=== PATIENT | female | born 1985 | race Caucasian/White ===

== ENCOUNTER 2017-08-13 20:01 | Emergency (ER) | payer BC, OTHER ==
[~2017-08-13] VITALS: Ht 160 cm; Wt 105.3 kg
[2017-08-13 20:21] VITALS: Ht 160 cm; Wt 105.3 kg
--- NOTE | 2017-08-13 22:31 | ERD ---
ER Documentation Chief Complaint Chief Complaint Pt was sitting when CP started, dizziness with head movement x 2months HPI 32-year-old female presents here in emergency department for complaints of mid chest pain that started this morning, it radiates from the chest to the neck area and to the head was upon movement, patient has been having these headaches on and off for the last 2 months. Patient's currently going to school and taking care of her child. Patient is complaining of chest pain, sharp pain, 6/ 10 scale, intermittent pain, not better or worse with anything. Patient did not take any medications to help with symptoms ROS All systems reviewed and are negative except as per history of present illness. Medications Home Meds Reported Medications [none] Unknown Strength No Conflict Check 08/13/17 Allergies Allergies: Coded Allergies: No Known Allergy (Unverified , 11/17/14) PMhx/Soc Medical and Surgical Hx: pt denies Medical Hx, pt denies Surgical Hx Hx Alcohol Use: No Hx Substance Use: No Hx Tobacco Use: No FmHx Family History: No coronary disease, No diabetes, No other Physical Exam Vitals Vital Signs Date Time Temp Pulse Resp B/P Pulse Ox O2 Delivery O2 Flow Rate FiO2 08/13/17 20:21 98.6 90 119 71/99 100 Physical Exam GENERAL: The patient is well developed and appropriate for usual state of health, in no apparent distress. CHEST: Clear to auscultation bilaterally. There are no rales, wheezes or rhonchi. HEART: Regular rate and rhythm. No murmurs, clicks, rubs or gallops. No S3 or S4. ABDOMEN: Soft, nontender and nondistended. Good bowel sounds. No rebound or guarding. No gross peritonitis. No gross organomegaly or masses. No Nugent sign or McBurney point tenderness. BACK: No midline or flank tenderness. EXTREMITIES: Tenderness on palpation of the right fifth toe. No deformity. No swelling. Equal pulses bilaterally. Full range of motion of other joints of the body. Grossly neurovascularly intact. NEURO: Alert and oriented. Cranial nerves 2-12 intact. Motor strength in all 4 extremities with 5/5 strength. Sensation grossly intact. Normal speech and gait. SKIN: There is no apparent rash or petechia. The skin is warm and dry. HEMATOLOGIC AND LYMPHATIC: There is no evidence of excessive bruising or lymphedema. No gross cervical, axillary, or inguinal lymphadenopathy. Result Diagram: 08/13/175 08/13/172224 Results 24 hrs Laboratory Tests Test 08/13/17 22:25 White Blood Count 9.910^3/ul Red Blood Count 4.4910^6/ul Hemoglobin 12.8g/dl Hematocrit 40.2% Mean Corpuscular Volume 89.5fl Mean Corpuscular Hemoglobin 28.5pg Mean Corpuscular Hemoglobin Concent 31.8g/dl Red Cell Distribution Width 13.2% Platelet Count 35203^3/UL Mean Platelet Volume 11.8fl Neutrophils % 70.5% Lymphocytes % 19.1% Monocytes % 7.3% Eosinophils % 2.8% Basophils % 0.2% Nucleated Red Blood Cells % 0.0/100WBC Neutrophils # 7.010^3/ul Lymphocytes # 1.910^3/ul Monocytes # 0.710^3/ul Eosinophils # 0.310^3/ul Basophils # 0.010^3/ul Nucleated Red Blood Cells # 0.010^3/ul Sodium Level 142mmol/L Potassium Level 4.0mmol/L Chloride Level 108mmol/L Carbon Dioxide Level 25mmol/L Anion Gap 13 Blood Urea Nitrogen 13mg/dl Creatinine 0.62mg/dl Glucose Level 99mg/dl Calcium Level 8.8mg/dl Total Bilirubin 0.4mg/dl Direct Bilirubin 0.00mg/dl Indirect Bilirubin 0.4mg/dl Aspartate Amino Transf (AST/SGOT) 17IU/L Alanine Aminotransferase (ALT/SGPT) 32IU/L Alkaline Phosphatase 65IU/L Troponin I < 0.012ng/ml Total Protein 7.4g/dl Albumin 4.3g/dl Globulin 3.10g/dl Albumin/Globulin Ratio 1.38 EKG was done, read by me and is normal sinus rhythm at a rate of 87, normal axis , there is no ST changes or changes in the EKG that indicates any cardiac emergencies at this time. Patient's EKG was also reviewed by . Impression: no acute findings on EKG PROCEDURE: XR Chest. CLINICAL INDICATION: Cough. Chest pain.. TECHNIQUE: Single frontal chest x-ray. COMPARISON: None. FINDINGS: The cardiomediastinal silhouette is unremarkable. There is hypoventilation with bibasilar atelectasis.. There is no definite focal lobar infiltrate.. There is no pleural effusion. There is no pneumothorax. The osseous structures are unremarkable. IMPRESSION: Hypoventilation with bibasilar atelectasis, less likely infiltrates. RPTAT: HMVK .Ernie Peralta MD, MD Date Time Electronically viewed and signed by .Ernie Peralta MD, MD on 08/13/2017 23:25 .K/ CC: KIAN HU TOY STUFFER PROCEDURE: XR right toes. CLINICAL INDICATION: Status post fall. Pain. TECHNIQUE: Three views of the right fifth toe are available for review COMPARISON: No prior studies are available for comparison. FINDINGS: There is normal mineralization and alignment. No fracture or osseous lesion is identified. The joints are normal. The soft tissues are unremarkable. IMPRESSION: 1. Unremarkable right fifth toe x-ray series. RPTAT: HMVK .Ernie Peralta MD, MD Date Time Electronically viewed and signed by .Ernie Peralta MD, MD on 08/14/2017 00:00 .K/ CC: KIAN HU TOY STUFFER Procedures/[facility] Heart score: 0 - low risk Medical Decision Making: Patient symptoms of chest pain nonspecific at this time , possible anxiety related, stress related, can be musculoskeletal pain. Low suspicion for neurologic emergencies. There is low suspicion for cardiopulmonary emergencies at this time. Patient has low risk factors. EKG is normal, there is no changes in the EKG that indicates cardiac emergencies. Chest X-ray does not show cardiopulmonary emergencies at this time. There is low suspicion for aortic aneurysm, myocardial infarction, pneumothorax, pleural effusion, pulmonary embolism, or any other cardiopulmonary emergencies at this time. Cardiac markers are normal. She also has a foot contusion, no fractures noted, no symptoms of any septic arthritis or osteomyelitis Patient was given for ibuprofen, tramadol, is advised to follow-up with primary care doctor in 2-3 days for reevaluation of symptoms. Patient was advised to return to emergency department for any worsening symptoms. Dispostion: Home. Stable Disclaimer: Inadvertent spelling and grammatical errors are likely due to EHR/ dictation software use and do not reflect on the overall quality of patient care. Also, please note that the electronic time recorded on this note does not necessarily reflect the actual time of the patient encounter. Departure Diagnosis: Primary Impression: Atypical chest pain Additional Impression: Foot contusion Encounter type: initial encounter Laterality: right Qualified Code: S90.31XA - Contusion of right foot, initial encounter Condition: Stable Patient Instructions: Chest Pain, Uncertain Cause, Contusion, Foot KIAN HU NP Aug 13, 2017 22:31
[2017-08-13 22:33] LABS: BASOPHILS % 0.2 % (0.0-2.0); EOSINOPHILS # 0.3 10^3/ul (0.0-0.5); EOSINOPHILS % 2.8 % (0.0-7.0); HEMATOCRIT 40.2 % (37.0-47.0); HEMOGLOBIN 12.8 g/dl (12.0-16.0); LYMPHOCYTES # 1.9 10^3/ul (0.8-2.9); LYMPHOCYTES % 19.1 % (15.0-51.0); MEAN CORPUSCULAR HEMOGLOBIN 28.5 pg (29.0-33.0); MEAN CORPUSCULAR HGB CONC 31.8 g/dl (32.0-37.0); MEAN CORPUSCULAR VOLUME 89.5 fl (82.0-101.0); MEAN PLATELET VOLUME 11.8 fl (7.4-10.4); MONOCYTE # 0.7 10^3/ul (0.3-0.9); MONOCYTES % 7.3 % (0.0-11.0); NEUTROPHILS % 70.5 % (39.0-77.0); PLATELET COUNT 151 10^3/UL (140-415); RED BLOOD COUNT 4.49 10^6/ul (4.20-5.40); RED CELL DISTRIBUTION WIDTH 13.2 % (11.5-14.5); WHITE BLOOD COUNT 9.9 10^3/ul (4.8-10.8)
[2017-08-13 22:54] LABS: ALANINE AMINOTRANSFERASE 32 IU/L (13-69); ALBUMIN 4.3 g/dl (3.3-4.9); ALBUMIN/GLOBULIN RATIO 1.38; ALKALINE PHOSPHATASE 65 IU/L (42-121); ANION GAP 13 (8-16); ASPARTATE AMINO TRANSFERASE 17 IU/L (15-46); BILIRUBIN,INDIRECT 0.4 mg/dl (0-1.1); BILIRUBIN,TOTAL 0.4 mg/dl (0.2-1.3); BLOOD UREA NITROGEN 13 mg/dl (7-20); CALCIUM 8.8 mg/dl (8.4-10.2); CARBON DIOXIDE 25 mmol/L (21-31); CHLORIDE 108 mmol/L (97-110); CREATININE 0.62 mg/dl (0.44-1.00); GLUCOSE 99 mg/dl (70-220); SODIUM 142 mmol/L (135-144); TOTAL PROTEIN 7.4 g/dl (6.1-8.1)
[2017-08-13 23:13] LABS: TROPONIN-I < 0.012 ng/ml (0.00-0.12)
--- NOTE | 2017-08-13 23:26 | RADRPT ---
PROCEDURE: XR Chest. CLINICAL INDICATION: Cough. Chest pain.. TECHNIQUE: Single frontal chest x-ray. COMPARISON: None. FINDINGS: The cardiomediastinal silhouette is unremarkable. There is hypoventilation with bibasilar atelectas is.. There is no definite focal lobar infiltrate.. There is no pleural effusion. There is no pneum othorax. The osseous structures are unremarkable. IMPRESSION: Hypoventilation with bibasilar atelectasis, less likely infiltrates. RPTAT: HMVK .Ernie Peralta MD, MD Date Time Electronically viewed and signed by .Ernie Peralta MD, on 08/13/2017 23:25 .K/
--- NOTE | 2017-08-14 | RADRPT ---
PROCEDURE: XR right toes. CLINICAL INDICATION: Status post fall. Pain. TECHNIQUE: Three views of the right fifth toe are available for review COMPARISON: No prior studies are available for comparison. FINDINGS: There is normal mineralization and alignment. No fracture or osseous lesion is identified. The joint s are normal. The soft tissues are unremarkable. IMPRESSION: 1. Unremarkable right fifth toe x-ray series. RPTAT: HMVK .Ernie Peralta MD, MD Date Time Electronically viewed and signed by .Ernie Peralta MD, on 08/14/2017 00:00 .K/
[2017-08-14] MEDS ORDERED: TRAM50TA2 PO (00:23)
[2017-08-14] MEDS ORDERED: IBUP-1542 PO (00:23)
== END 2017-08-14 00:37 | disposition home or self-care (01) ==
LOC: FTE 20:01
DX: R07.89 Other chest pain (principal); S90.31XA Contusion of right foot, initial encounter; X58.XXXA Exposure to other specified factors, initial encounter; Y92.9 Unspecified place or not applicable
CPT/HCPCS: 71010; 73630; 80053; 84484; 85025; 93005; Z7502

== ENCOUNTER 2018-03-27 09:55 | Day surgery (SDC) | END 2018-03-27 15:58 | disposition home or self-care (01) ==

== ENCOUNTER 2019-04-30 17:46 | Emergency (ER) | payer BC ==
[~2019-04-30] VITALS: Ht 167.6 cm; Wt 105.9 kg
[~2019-04-30 17:46] MED LIST: IBUP-1542 PO; IBUP200C11 PO; TRAM50TA2 PO
[2019-04-30 18:17] VITALS: Ht 167.6 cm; Wt 105.9 kg
[2019-04-30] MEDS ORDERED: morphine 4 MG/ML VIAL IV STA (21:59)
[2019-04-30] MEDS ORDERED: ONDANSETRON 4 MG INJ IV STA (21:59)
[2019-04-30] MEDS ORDERED: SOD CHLORIDE 0.9% 1,000 ML IV STA (21:59)
[2019-05-01] MEDS ORDERED: POTASSIUM CHLORIDE (SR) 20 MEQ TAB PO STA (00:47)
--- NOTE | 2019-05-01 00:47 | ERD ---
ER Documentation Chief Complaint Chief Complaint weakness, PEREZ and abdominal pain x 3 days HPI 33-year-old female presenting with generalized weakness, dizziness, and left abdominal and flank pain. The pain was intermittent initially but is now constant. Pain is worse with movement and deep inspiration. No alleviating factors. She also complains of fevers and chills. She saw her primary care doctor today, who referred her to the ER for further evaluation. She denies any nausea, vomiting, dysuria, hematuria. She was recently on a long flight from [facility] 1 week ago. ROS All systems reviewed and are negative except as per history of present illness. Medications Home Meds Active Scripts Tramadol HCl (Tramadol HCl) 50 Mg Tablet, 50 MG PO Q6 for SEVERE PAIN LEVEL 7-1 0, #20 TAB Prov:KIAN HU NP 08/14/17 Ibuprofen* (Motrin*) 600 Mg Tab, 600 MG PO Q6H PRN for PAIN AND OR ELEVATED TEMP, #30 TAB Prov:KIAN HU NP 08/14/17 Reported Medications [none] Unknown Strength No Conflict Check 08/13/17 Allergies Allergies: Coded Allergies: No Known Allergy (Unverified , 11/17/14) PMhx/Soc History of Surgery: Yes (TONSILLECTOMY, CS X2) Anesthesia Reaction: No Hx Neurological Disorder: No Hx Respiratory Disorders: No Hx Cardiac Disorders: No Hx Psychiatric Problems: No Hx Miscellaneous Medical Probl: No Hx Alcohol Use: Yes Hx Substance Use: No Hx Tobacco Use: Yes (quit 2 WEEKS AGO) Smoking Status: Former smoker FmHx Family History: No diabetes Physical Exam Vitals Vital Signs Date Temp Pulse Resp B/P (MAP) Pulse Ox O2 O2 Flow FiO2 Time Delivery Rate 04/30/19 98.8 116 18 118/55 98 Room Air 21:21 (76) 04/30/19 101.9 108 16 176/106 98 18:17 (129) Physical Exam Const: No acute distress Head: Atraumatic Eyes: Normal Conjunctiva ENT: Normal External Ears, Nose and Mouth. Neck: Full range of motion. No meningismus. Resp: Clear to auscultation bilaterally. No tachypnea or retractions Cardio: Tachycardic with regular rhythm, no murmurs Abd: Soft, non tender, non distended. Normal bowel sounds Skin: Appears pale. No petechiae or rashes Back: No midline or flank tenderness Ext: No cyanosis, or edema Neur: Awake and alert Psych: Normal Mood and Affect Result Diagram: 04/30/19214204/30/192142 Results 24 hrs Laboratory Tests Test 04/30/19 21:31 04/30/19 21:43 04/30/19 21:47 Urine Color YELLOW Urine Clarity SLIGHTLY CLOUDY Urine pH 5.0 Urine Specific [place] 1.023 Urine Ketones NEGATIVE mg/dL Urine Nitrite NEGATIVE mg/dL Urine Bilirubin NEGATIVE mg/dL Urine Urobilinogen NEGATIVE mg/dL Urine Leukocyte Esterase NEGATIVE Isa/ul Urine Microscopic RBC 10 /HPF Urine Microscopic WBC 6 /HPF Urine Squamous Epithelial Cells FEW /HPF Urine Mucus MANY /HPF Urine Hemoglobin 3+ mg/dL Urine Glucose NEGATIVE mg/dL Urine Total Protein NEGATIVE mg/dl Urine Test NEGATIVE White Blood Count 11.6 10^3/ul Red Blood Count 4.75 10^6/ul Hemoglobin 13.4 g/dl Hematocrit 41.8 % Mean Corpuscular Volume 88.0 fl Mean Corpuscular Hemoglobin 28.2 pg Mean Corpuscular 32.1 g/dl Hemoglobin Concent Red Cell Distribution Width 13.3 % Platelet Count 194 10^3/UL Mean Platelet Volume 12.2 fl Immature Granulocytes % 0.300 % Neutrophils % 77.6 % Lymphocytes % 12.5 % Monocytes % 7.9 % Eosinophils % 1.6 % Basophils % 0.1 % Nucleated Red Blood Cells % 0.0 /100WBC Immature Granulocytes # 0.040 10^3/ul Neutrophils # 9.0 10^3/ul Lymphocytes # 1.5 10^3/ul Monocytes # 0.9 10^3/ul Eosinophils # 0.2 10^3/ul Basophils # 0.0 10^3/ul Nucleated Red Blood Cells # 0.0 10^3/ul Sodium Level 137 mmol/L Potassium Level 3.3 mmol/L Chloride Level 104 mmol/L Carbon Dioxide Level 24 mmol/L Anion Gap 9 Blood Urea Nitrogen 9 mg/dl Creatinine 0.60 mg/dl Est Glomerular Filtrat > 60 mL/min Rate mL/min Glucose Level 133 mg/dl Calcium Level 9.3 mg/dl Total Bilirubin 0.8 mg/dl Direct Bilirubin 0.00 mg/dl Indirect Bilirubin 0.8 mg/dl Aspartate Amino 16 IU/L Transf (AST/SGOT) Alanine 20 IU/L Aminotransferase (ALT/SGPT) Alkaline Phosphatase 57 IU/L Total Protein 7.1 g/dl Albumin 4.3 g/dl Globulin 2.80 g/dl Albumin/Globulin Ratio 1.53 Lipase 57 U/L POC Venous Lactate 1.7 mmol/L Current Medications Medications Dose Sig/Susie Start Time Status Last (Trade) Ordered Route PRN Stop Time Admin Dose Reason Admin Sodium 1,000 ml @ Q1H STAT 04/30/19 DC 04/30/19 Chloride 1,000 mls/hr IV 21:59 22:12 04/30/19 22:58 Morphine 4 mg ONCE STAT 04/30/19 DC 04/30/19 Sulfate IV 21:59 22:12 (morphine) 04/30/19 22:02 Ondansetron 4 mg ONCE STAT 04/30/19 DC 04/30/19 HCl (Zofran IV 21:59 22:12 Inj) 04/30/19 22:02 Procedures/MDM EMERGENT LABS AND DIAGNOSTIC STUDIES: Lab Results above were reviewed and interpreted by me. CBC: No significant leukocytosis or anemia. No thrombocytosis or thrombocytopenia CMP: Mild hypokalemia. No evidence of clinically significant electrolyte abnormality, acidosis, renal failure, hypoglycemia, liver disease, or biliary obstruction Lactate within normal limits without evidence of sepsis or tissue hypoperfusion UA: no evidence of infection 12-lead EKG was interpreted by Ramirez Best MD: Normal Sinus Rhythm with ventricular rate of [] beats per minute Normal axis Normal intervals No acute ST or T wave changes suggestive of acute ischemia or STEMI. Radiology Results as interpreted by Radiology below were reviewed by Alisia Best MD: CT abdomen and pelvis shows no acute intra-abdominal pathology. Only left-sided pleural effusion noted with atelectasis. Chest x-ray shows left-sided pleural effusion CTPA pending Initial Nursing notes reviewed. Previous Medical Records requested via the Electronic Health Record. EMERGENCY DEPARTMENT COURSE / MEDICAL DECISION MAKING: patient is presenting with left-sided abdominal and flank pain with generalized weakness and dizziness. Vitals were notable for fever and tachycardia on arrival. However there is no clear source of infection on work-up. She did receive IV fluids. Lactate was within normal limits with no evidence of severe sepsis or septic shock. There is no associated pneumonia with the pleural effusion seen on the CT scan. Given her recent long flight, I have a higher suspicion for possible pulmonary embolism. CTPA has been ordered and is pending. I feel the patient will require admission for further observation and stabilization. CTPA pending at time of signout. Patient may need to be transferred if admitted to [facility]. Signed out to oncoming ED physician, Dr. Cam, who will be following up on the CT scan. Departure Diagnosis: Primary Impression: Left flank pain Additional Impressions: Pleural effusion, left Generalized weakness Condition: BRITTNI Knapp MD May 01, 2019 00:47
[2019-05-01] MEDS ORDERED: SOD CHLORIDE 0.9% 100 ML ONE (01:18)
[2019-05-01] MEDS ORDERED: IOHEXOL 300MG/ML 150 ML BTL ONE (01:18)
[2019-05-01] MEDS ORDERED: LEVOFLOXACIN 750MG/D5W (PMX) 150 ML IVPB ONE (01:30)
[2019-05-01] MEDS ORDERED: ACETAMINOPHEN 325 MG TAB PO ONE (01:30)
[2019-05-01 03:00] VITALS: BP 100/71; PULSE 96; RESP 14
== END 2019-05-01 06:33 | disposition short-term general hospital (02) ==
LOC: E/R 17:46
DX: J90 Pleural effusion, not elsewhere classified (principal); R53.1 Weakness; Z87.891 Personal history of nicotine dependence
CPT/HCPCS: 36415; 71045; 71275; 74176; 80053; 81001; 83605; 83690; 84703; 85025; 87040; 87086; 93005; 96374; 96375; J1956; J2270; J2405; J7030; Q9967; Z7502; Z7610

== ENCOUNTER 2019-06-08 20:32 | Emergency (ER) | payer BC ==
[~2019-06-08] VITALS: Ht 170.2 cm; Wt 103.7 kg
[~2019-06-08 20:32] MED LIST changes: +ACET325T33 PO; +DOXY100T20 PO; -IBUP-1542 PO; +IBUP-1561 PO; -TRAM50TA2 PO
[2019-06-08 20:43] VITALS: BP 116/56; PULSE 84; RESP 20; Ht 170.2 cm; Wt 103.7 kg
[2019-06-08] MEDS ORDERED: HYDROCODONE/APAP (10/325) TAB PO ONE (21:30)
[2019-06-08] MEDS ORDERED: LIDOCAINE 1% (MDV) 20 ML INJ SC ONE (21:30)
== END 2019-06-08 22:23 | disposition home or self-care (01) ==
LOC: FTE 20:32
DX: N75.1 Abscess of Bartholin's gland (principal); Z87.891 Personal history of nicotine dependence
CPT/HCPCS: 56420; Z7502; Z7610